=== PATIENT | male | born 1965 | race Asian ===

== ENCOUNTER 2023-04-13 11:22 | Inpatient (IN) | payer OTHER ==
[~2023-04-13] VITALS: Ht 170.2 cm; Wt 81.6 kg
--- NOTE | 2023-04-13 11:44 | NUR ---
quality assurance assessor at bedside
--- NOTE | 2023-04-13 11:53 | NUR ---
patient taken to ct via edward
[2023-04-13 12:07] LABS: BASOPHILS % (AUTO) 1.3 % (0.0-2.0); EOSINOPHILS % (AUTO) 2.3 % (0.0-6.0); HEMATOCRIT 27 % (39-51); HEMOGLOBIN 9.1 g/dL (13.5-17.5); LYMPHOCYTES # (AUTO) 0.4 K/uL (0.8-4.8); LYMPHOCYTES % (AUTO) 10.2 % (20.0-44.0); MEAN CORPUSCULAR HGB CONC 34 g/dl (31.0-36.0); MEAN CORPUSCULAR VOLUME 87 fL (80-96); MONOCYTES # (AUTO) 0.3 K/uL (0.1-1.30); MONOCYTES % (AUTO) 8.7 % (2.0-12.0); NEUTROPHILS # (AUTO) 2.9 K/uL (1.8-8.9); NEUTROPHILS % (AUTO) 77.5 % (43.0-81.0); PLATELET COUNT (AUTO) 184 K/uL (150-450); RED BLOOD CELL COUNT(AUTO) 3.08 MIL/uL (4.5-6.0); WHITE BLOOD COUNT (AUTO) 3.7 K/uL (4.3-11.0)
[2023-04-13 12:16] LABS: CALCIUM, SERUM 8.3 mg/dL (8.5-10.1); CARBON DIOXIDE 20 mmol/L (21-32); CHLORIDE 97 mmol/L (98-107); GLUCOSE 162 mg/dL (74-106); POTASSIUM 3.4 mmol/L (3.5-5.1); SODIUM SERUM 137 mmol/L (136-145); UREA NITROGEN, BLOOD 40 mg/dL (7-18)
--- NOTE | 2023-04-13 12:22 | NUR ---
MOVE SHEET SUBMITTED.
[2023-04-13 12:29] LABS: ALANINE AMINOTRANSFERASE 27 U/L (12-78); ALKALINE PHOSPHATASE 77 U/L (46-116); ASPARTATE AMINOTRANSFERASE 16 U/L (15-37); BILIRUBIN,DIRECT 0.2 mg/dL (0.0-0.2); BILIRUBIN,TOTAL 0.8 mg/dL (0.2-1.0); CREATININE 8.2 mg/dL (0.6-1.3); TOTAL PROTEIN, SERUM 7.8 g/dL (6.4-8.2)
--- NOTE | 2023-04-13 12:36 | NUR ---
EMERGENCY CONTACT: SISTER: JOSSIE BLEDSOE
--- NOTE | 2023-04-13 12:57 | NUR ---
DR. LANDAVERDE AT BEDSIDE
[2023-04-13] MEDS ORDERED: NIFEdipine XL (30MG) 30 MG TAB PO SCH (13:30)
[2023-04-13] MEDS ORDERED: DOXAZOSIN MESYLATE (1 MG) 1 MG TABLET PO SCH (13:30)
[2023-04-13] MEDS ORDERED: CARVEDILOL 6.25 MG TABLET PO ONE (13:30)
[2023-04-13] MEDS ORDERED: LISINOPRIL (20MG) 20 MG TABLET PO SCH (13:30)
[2023-04-13] MEDS ORDERED: CARVEDILOL 6.25 MG TABLET ONE (13:46)
[2023-04-13] MEDS ORDERED: LISINOPRIL (20MG) 20 MG TABLET ONE (13:51)
[2023-04-13] MEDS ORDERED: ACETAMINOPHEN 325 MG TABLET PO PRN (15:30)
[2023-04-13] MEDS ORDERED: ONDANSETRON HCL/PF 4 MG/2 ML VIAL IVP PRN (15:30)
[2023-04-13] MEDS ORDERED: Z GUARD REMEDY 4 OZ OINT TP PRN (15:30)
--- NOTE | 2023-04-13 16:30 | NUR ---
ROOM ASSIGNED GOING TO RM 104, ADMITTING AWARE.
--- NOTE | 2023-04-13 16:39 | NUR ---
REPORT GIVEN TO MAULIK CORREIA. PT AWAITING TRANSFER TO FLOOR.
--- NOTE | 2023-04-13 16:58 | NUR ---
GOT BED 323-1 ADMITTING INFORMED.
--- NOTE | 2023-04-13 17:04 | NUR ---
REPORT GIVEN TO TAMARA PT GOING TO 310.2 AWAITING TRANSFER TO FLOOR.
[2023-04-13 18:45] VITALS: BP 180/79
--- NOTE | 2023-04-13 19:01 | NUR ---
MS 3RD MATE NOTES PT ADMITTED TO UNIT [facility]IA [facility] AT 1840 WITH DIAGNOSIS OF GENERALIZED WEAKNESS. PT IS A/O X4. ABLE TO VERBALIZED NEEDS. PT ORIENTED TO STAFF AND ROOM. ON ROOM AIR, TOLERATING WELL, BREATHING EVEN AND UNLABORED, NO ACUTE RESPIRATORY DISTRESS NOTED. PT WITH TRAVIS AV FISTULA WITH POSITIVE BRUIT/THRILL. IV ACCESS NOTED ON LEFT HAND #18G INTACT AND PATENT. LUNGS CLEAR ON AUSCULTATION. ABDOMEN SOFT, NON-TENDER WITH POSITIVE BOWEL SOUNDS PRESENT. ABLE TO MOVE ALL EXTREMITIES WITHOUT DIFFICULTY. ALL SAFETY PRECAUTIONS IMPLEMENTED: HOB ELEVATED, BED IN LOWEST LOCKED POSITION, SIDE-RAILS UP X2, CALL LIGHT PLACED WITHIN EASY REACH OF PT. ENDORSED TO SPOT MACHINE OPERATOR BREN PACK TO COMPLETE THE ADMISSION PROCESS.
--- NOTE | 2023-04-13 19:30 | NUR ---
MS RN OPENING NOTES RECEIVED PT AWAKE IN BED WATCHING TV AT THIS TIME. A/O X4, ABLE TO MAKE NEEDS KNOWN. ON ROOM AIR, TOLERATING WELL, BREATHING EVEN AND UNLABORED, NO ACUTE RESPIRATORY DISTRESS NOTED. PT WITH TRAVIS AV FISTULA WITH POSITIVE BRUIT/THRILL. IV ACCESS NOTED ON R HAND #18G INTACT, PATENT, FLUSHING WELL. LUNGS CLEAR ON AUSCULTATION. ABDOMEN SOFT, NON-TENDER WITH POSITIVE BOWEL SOUNDS PRESENT. CIRCULATION WNL. EYES PERRLA. RASHES ON TORSO NOTED, DOCUMENTED IN CHART. SAFETY PRECAUTIONS IN PLACE: HOB ELEVATED, BED IN LOWEST LOCKED POSITION, SIDE-RAILS UP X2, CALL LIGHT PLACED WITHIN EASY REACH OF PT. WILL CONTINUE TO MONITOR AND ASSIST.
[2023-04-13 20:00] VITALS: BP 158/77
--- NOTE | 2023-04-13 20:00 | NUR ---
RN NOTE ORTHOSTATIC BP TEST PERFORMED SUPINE: 177/80, 80HR STANDING (AFTER 1 MIN): 128/70, 90HR STANDING (AFTER 3 MIN): 141/73, 77HR
[2023-04-13 20:15] VITALS: BP_SYST 128; BP_SYST 141; BP_SYST 177; BP_DIAS 70; BP_DIAS 73; BP_DIAS 80
--- NOTE | 2023-04-14 | NUR ---
RN NOTE TRIED TO CALL PT'S HOME PHONE TO OBTAIN HOME MEDS FROM , NO ANSWER. WILL TRY AGAIN IN THE MORNING.
[2023-04-14 00:16] VITALS: BP 128/66
--- NOTE | 2023-04-14 06:11 | NUR ---
RN NOTE TRIED TO CALL PT'S HOME PHONE AGAIN TO OBTAIN HOME MEDS FROM , STILL NO ANSWER. WILL ENDORSE TO DAY SHIFT NURSE.
--- NOTE | 2023-04-14 06:59 | NUR ---
MS RN CLOSING NOTES PT IN BED SLEEPING AT THIS TIME, EASILY AROUSABLE. A/O X4, ABLE TO MAKE NEEDS KNOWN. STABLE ON ROOM AIR, TOLERATING WELL, BREATHING EVEN AND UNLABORED, NO ACUTE RESPIRATORY DISTRESS NOTED. PT WITH TRAVIS AV FISTULA WITH POSITIVE BRUIT/THRILL. IV ACCESS NOTED ON R HAND #18G SL, INTACT, PATENT, FLUSHING WELL. ALL CARE PROVIDED AND MEDS TOLERATED WELL. SAFETY PRECAUTIONS MAINTAINED: HOB ELEVATED, BED IN LOWEST LOCKED POSITION, SIDE-RAILS UP X2, CALL LIGHT PLACED WITHIN EASY REACH OF PT. WILL ENDORSE YOSELIN TO DAY SHIFT NURSE.
[2023-04-14 07:30] VITALS: BP 146/66
[2023-04-14] MEDS ORDERED: PANTOPRAZOLE 40 MG TABLET.DR PO SCH (07:30)
--- NOTE | 2023-04-14 07:50 | NUR ---
MS RN OPENING NOTES PT AWAKE IN BED. A/O X4, ABLE TO MAKE NEEDS KNOWN. STABLE ON ROOM AIR, TOLERATING WELL, BREATHING EVEN AND UNLABORED, NO ACUTE RESPIRATORY DISTRESS NOTED. PT WITH TRAVIS AV FISTULA WITH POSITIVE BRUIT/THRILL. IV ACCESS NOTED ON R HAND #18G SL, INTACT, PATENT, FLUSHING WELL. SAFETY PRECAUTIONS MAINTAINED: HOB ELEVATED, BED IN LOWEST LOCKED POSITION, SIDE-RAILS UP X2, CALL LIGHT PLACED WITHIN EASY REACH OF PT. WILL CONTINUETO MONITOR.
[2023-04-14 07:51] LABS: BASOPHILS # (AUTO) 0.1 K/uL (0.0-0.2); BASOPHILS % (AUTO) 1.2 % (0.0-2.0); EOSINOPHILS % (AUTO) 3.6 % (0.0-6.0); HEMATOCRIT 26 % (39-51); HEMOGLOBIN 8.6 g/dL (13.5-17.5); LYMPHOCYTES # (AUTO) 0.6 K/uL (0.8-4.8); MEAN CORPUSCULAR HGB CONC 33 g/dl (31.0-36.0); MEAN CORPUSCULAR VOLUME 87 fL (80-96); MONOCYTES # (AUTO) 0.6 K/uL (0.1-1.30); MONOCYTES % (AUTO) 13.3 % (2.0-12.0); NEUTROPHILS # (AUTO) 3.3 K/uL (1.8-8.9); NEUTROPHILS % (AUTO) 68.9 % (43.0-81.0); PLATELET COUNT (AUTO) 181 K/uL (150-450); RED BLOOD CELL COUNT(AUTO) 2.95 MIL/uL (4.5-6.0); WHITE BLOOD COUNT (AUTO) 4.8 K/uL (4.3-11.0)
[2023-04-14 08:00] LABS: BILIRUBIN,URINE NEGATIVE (NEGATIVE); COLOR,URINE YELLOW (YELLOW); LEUKOCYTE ESTERASE ,URINE NEGATIVE (NEGATIVE); NITRITE, URINE NEGATIVE (NEGATIVE); PROTEIN,URINE 3+ mg/dl (NEGATIVE); UGLUCOSE 2+ mg/dL (NEGATIVE); UROBILINOGEN,URINE 0.2 EU/dL (0.2)
[2023-04-14 08:02] LABS: BACTERIA,URINE Rare /HPF (None Seen); SQUAMOUS EPITHELIAL CELL,UR Few /HPF (None Seen); WBC,URINE 0-2 /HPF (0-3)
[2023-04-14 08:16] LABS: CALCIUM, SERUM 7.3 mg/dL (8.5-10.1); MAGNESIUM 2.5 mg/dL (1.8-2.4); PHOSPHORUS 6.1 mg/dL (2.5-4.9); POTASSIUM 3.5 mmol/L (3.5-5.1)
[2023-04-14 08:20] LABS: CREATININE 10.8 mg/dL (0.6-1.3)
[2023-04-14] MEDS ORDERED: FURO20TA4 PO (11:37)
[2023-04-14] MEDS ORDERED: LISI20TA30 PO (11:37)
[2023-04-14] MEDS ORDERED: LACO200T2 PO (11:37)
[2023-04-14] MEDS ORDERED: LACO100T2 PO (11:37)
[2023-04-14] MEDS ORDERED: NIFE-34 PO (11:37)
[2023-04-14] MEDS ORDERED: DOXA2TAB2 PO (11:37)
[2023-04-14] MEDS ORDERED: INSU100I26 SQ (11:37)
[2023-04-14] MEDS ORDERED: CHOL100043 PO (11:37)
[2023-04-14] MEDS ORDERED: CARV6.252 PO (11:37)
[2023-04-14] MEDS ORDERED: EPOETIN ALFA-EPBX 4,000 UNIT/ML VIAL IV SCH (15:00)
--- NOTE | 2023-04-14 15:56 | NUR ---
DISCHARGED NOTES PATIENT DISCHARGED TO HOME IN STABLE CONDITION, A/OX4. ON RA, TOLERATING WELL. VITALS TAKEN, STABLE AND RECORDED. DISCHARGED INSTRUCTIONS/ EDUCATION RELAYED TO THE PATIENT. HEALTH TEACHING DONE, ADVISED PATIENT TO MAKE A FOLLOW UP TO PRIMARY DOCTOR SOON HE CAN. ALL BELONGINGS ACCOUNTED TO THE PATIENT. IV ACCESS REMOVED ASEPTICALLY. PATIENT LEFT THE UNIT VIA GURNEY ACCOMPANIED BY AMBULANCE STAFF. DISCHARGED.
== END 2023-04-14 16:00 | disposition home or self-care (01) | DRG 425 ==
LOC: ER 11:31 → TELE 17:14 → MED 21:10
PROVIDERS: ATTEND Internal Medicine
DX: E87.8 Other disorders of electrolyte and fluid balance, not elsewhere classified (principal); I12.0 Hypertensive chronic kidney disease with stage 5 chronic kidney disease or end stage renal disease; D63.8 Anemia in other chronic diseases classified elsewhere; E83.39 Other disorders of phosphorus metabolism; E83.41 Hypermagnesemia; N18.6 End stage renal disease; Z99.2 Dependence on renal dialysis; E87.6 Hypokalemia; D72.819 Decreased white blood cell count, unspecified; Z20.822 Contact with and (suspected) exposure to COVID-19; M89.8X9 Other specified disorders of bone, unspecified site
CPT/HCPCS: 36415; 70450-TC; 71045-TC; 80048-TC; 80076-TC; 81001; 83605-TC; 83735-TC; 83970; 84100-TC; 84484-TC; 85025-TC; 85730-TC; 87040-TC; 87081-TC; 87086-TC; 93307-TC; 97116-TC; G0378; J0885; J2405